=== PATIENT | male | born 1955 | race Caucasian/White ===

== ENCOUNTER 2018-05-12 15:08 | Outpatient (RCR) | payer MEDICARE, BC ==
[2014-10-10 16:42] VITALS: Wt 143.6 kg
[~2018-05-12 15:08] MED LIST: ALPR-445 PO; ASPI-764 PO; ASPI81TA94 PO; CEPH250C37 PO; HYDR-385 PO; HYDR-389 PO; LEVO200T50 PO; LISI20TA29 PO; RANI75TA51 PO; ROPI3TAB18 PO
[2018-05-15 13:30] VITALS: BP 122/80
[2018-05-15] MEDS ORDERED: ASPI-1471 PO (13:33)
[2018-05-15] MEDS ORDERED: ALPR-429 PO (14:24)
[2018-05-15] MEDS ORDERED: ASCO-182 PO (14:24)
[2018-05-15] MEDS ORDERED: VITA-175 PO (14:24)
[2018-05-15] MEDS ORDERED: CHLOR25 PO (14:24)
[2018-05-15] MEDS ORDERED: DULO30CA35 PO (14:24)
[2018-05-15] MEDS ORDERED: DULO60CA56 PO (14:24)
[2018-05-15] MEDS ORDERED: HYDR-2966 PO (14:24)
[2018-05-15] MEDS ORDERED: MULT1CAP59 PO (14:24)
[2018-05-15] MEDS ORDERED: CYAN100T26 PO (14:24)
[2018-05-15] MEDS ORDERED: METF-450 PO (14:24)
[2018-05-15 14:35] LABS: PLATELET COUNT, AUTOMATED 180 K/uL (150-450)
--- NOTE | 2018-05-30 08:28 | [facility] ONCOLOGY NOTE ---
EVENT DATE: May 15, 2018 CHIEF COMPLAINT/REASON FOR VISIT Mr. Almanza is a pleasant 63-year old gentleman with a history of pancytopenia that presents to establish care with our clinic. HISTORY OF PRESENT ILLNESS Mr. Almanza presents to establish care. He has an outstanding CBC noted today. Completely normal white blood cell count, red blood cell count and platelets. We had extensive documentations from [facility] regarding this patient. He has been followed with multiple flow cytometries, which have thankfully been negative. He has some symptoms of concern including paresthesias, which had led to extensive evaluation. There is some concern for rheumatologic disease as well. He has a history of Valley fever, renal insufficiency, obesity, restless leg syndrome. By report, his most recent iron studies were normal. We repeated these and confirmed that. I believe his restless leg disease is unrelated to iron deficiency. In the past, he has had metamyelocytes and rare myelocytes noted on the peripheral smear. These are likely reactive but I see no other sign of hematologic cancer. He is establishing with Dr. Rebollar for his many other comorbidities and think these are his more important issues here. With that said, I do believe we should follow his labs closely. The monocytosis that was noted at [facility] is not noted by our lab today. PAST MEDICAL HISTORY Numerous comorbidities including, but not limited to: 1. Arthralgias. 2. Diabetes. 3. Hypertension. 4. History of Valley fever. 5. Elevated uric acid. 6. Hypothyroidism. 7. Renal insufficiency. 8. Obesity. 9. Peripheral neuropathy. FAMILY HISTORY Remarkable for polycystic kidney disease, hypertension, diabetes. PAST SURGICAL HISTORY Remarkable for knee replacements. REVIEW OF SYSTEMS CONSTITUTIONAL: No fever, chills, significant weight change. HEENT: No headache or vision changes. CARDIOVASCULAR: No chest pain, dyspnea on exertion or edema. RESPIRATORY: No shortness of breath, wheeze or cough. GI: No nausea, vomiting, diarrhea or constipation. : No dysuria or hematuria. MUSCULOSKELETAL: No weakness or joint pain. PSYCHIATRIC: No anxiety or depression. Remainder of 14-point review of systems otherwise negative. PHYSICAL EXAMINATION VITAL SIGNS: Blood pressure 122/80, pulse 79, respiratory rate 18, temperature 97.9 Fahrenheit, oxygen saturation 93% on room air. Weight 143.6 kg, which I believe is one of his major issues today. Pain 0/10. Fatigue 0/10. GENERAL: Stable condition, resting comfortably in the chair. HEENT: Normocephalic, atraumatic. LYMPHATIC: Negative. ABDOMEN: Soft, obese. EXTREMITIES: No clubbing, cyanosis or significant edema. Remainder of physical exam deferred today due to amount of time reviewing his outside records and spent with the patient today coordinating his care. IMPRESSION/REPORT/PLAN Mr. Almanza is a pleasant 63-year old gentleman with the following: History of an abnormal CBC with monocytosis and rare myelocytes and metamyelocytes. His labs look much better today. I am not seeing any of these issues today that we saw previously. I would like to follow him every six months. We are getting labs today. Of note, his thyroid was slightly off and I recommend he re-establish care with Dr. Rebollar. He states he is going to do this. I will see him back in six months with repeat labs. Billing New patient level 4. Total time 45 minutes, counseling time 30. MTDD
== END 2018-06-23 09:00 | disposition home or self-care (01) ==
LOC: ONC 15:08
PROVIDERS: ATTEND Internal Medicine
DX: D61.818 Other pancytopenia (principal)
CPT/HCPCS: 82728; 83540; 83550; 83615; 84443; 85025; 86140; G0463; 82040; 82247; 82310; 82374; 82435; 82565; 82947; 84075; 84132; 84155; 84295; 84450; 84460; 84520; 99202

== ENCOUNTER → 2018-07-08 | Outpatient (CLI) | payer MEDICARE, BC ==
[2014-10-10 16:42] VITALS: BMI 41.5
[~2018-07-08] MED LIST changes: +ALPR-429 PO; +ASCO-182 PO; +ASPI-1471 PO; +CHLOR25 PO; +CYAN100T26 PO; +DULO30CA35 PO; +DULO60CA56 PO; +HYDR-2966 PO; +METF-450 PO; +MULT1CAP59 PO; +VITA-175 PO
== END ==
LOC: LAB 09:40
PROVIDERS: ATTEND Family Medicine
DX: R73.01 Impaired fasting glucose (principal); E03.9 Hypothyroidism, unspecified; E78.5 Hyperlipidemia, unspecified; I10 Essential (primary) hypertension
CPT/HCPCS: 36415; 83036; 85027; 85651; G0103; 82040; 82247; 82310; 82374; 82435; 82465; 82565; 82947; 83718; 84075; 84132; 84153; 84155; 84295; 84450; 84460; 84478; 84520

== ENCOUNTER → 2018-07-08 | Outpatient (CLI) | payer MEDICARE, BC ==
[2014-10-10 16:42] VITALS: BMI 41.5
== END ==
LOC: LAB 09:35
DX: E03.9 Hypothyroidism, unspecified (principal)
CPT/HCPCS: 84443